=== PATIENT | male | born 1945 | race Hispanic/Latino ===

== ENCOUNTER → 2018-02-14 | Outpatient (CLI) | payer OTHER ==
[~2018-02-14] MED LIST: IOPAMIDOL 370 MG/ML 200 ML INFUS..BTL INJ ONE; SODIUM CHLORIDE 0.9% 50ML 50 ML ONE
[2018-02-14 10:29] LABS: BLOOD UREA NITROGEN 14 mg/dL (7-26); BUN/CREATININE RATIO 16 (6-25); CREATININE, SERUM 0.85 mg/dL (0.72-1.25); EST GLOMERULAR FILTRATION RATE > 60 ML/MIN (60-)
--- NOTE | 2018-02-14 11:28 | Diagnostic Imaging Report ---
PROCEDURE: CT ABDOMEN \T\ PELVIS W/WO CONTRAST TECHNIQUE: The abdomen and pelvis were scanned utilizing a multidetector helical scanner from the diaphragm to the lesser trochanter before and after the IV administration of 100 cc of Isovue 370 and the oral administration of water. Renal mass protocol was performed. Coronal and sagittal multiplanar reformations were obtained. COMPARISON: None. INDICATIONS: NEOPLASM OF KIDNEY FINDINGS: LOWER THORAX: Normal. HEPATOBILIARY: No focal hepatic lesions. No biliary ductal dilatation. The gallbladder has been removed. SPLEEN: No splenomegaly. PANCREAS: No focal masses or ductal dilatation. ADRENALS: No adrenal nodules. KIDNEYS/URETERS: Left kidney: 4.4 cm exophytic low attenuation lesion projecting from the upper pole with attenuation characteristics as follows: Precontrast: one Hounsfield unit Arterial phase: 5 Hounsfield units Venous phase: 6 Hounsfield units Delayed phase: 3 Hounsfield units 2.1 cm partially exophytic lesion in the interpolar region with attenuation characteristics as follows: Pre-contrast: Zero Hounsfield units Arterial phase: 7 Hounsfield units Venous phase: 13 Hounsfield units Delayed phase: 10 Hounsfield units 2.7 cm partially exophytic lesion projecting medially from the lower pole with attenuation characteristics as follows: Pre-contrast: Zero Hounsfield units Arterial phase: 6 Hounsfield units Venous phase: Zero Hounsfield units Delayed phase: 4 Hounsfield units. No calculi or hydronephrosis. Delayed phase images show no filling defects within the upper colon and system or ureter. There is soft tissue fullness at the left ureterovesical junction measuring 1.3 cm (series 7 image 154). Right kidney: No solid or cystic mass lesion. No calculi or hydronephrosis. Delayed-excretory phase images show no filling defects within the upper collecting systems or ureter. PELVIC ORGANS/BLADDER: The prostate is enlarged with mass effect upon the bladder base. Soft tissue fullness at the left ureterovesical junction as above. Bladder is otherwise unremarkable.. PERITONEUM / RETROPERITONEUM: No ascites or pneumoperitoneum. LYMPH NODES: No pelvic sidewall, retroperitoneal, or mesenteric lymphadenopathy. VESSELS: The atherosclerotic calcification of the abdominal aorta and major branch vessels with moderate proximal SMA stenosis. Celiac axis and SHERINE origins are widely patent. Single bilateral renal arteries with widely patent ostia. Right common iliac arterial stent and a partially visualized right superficial femoral arterial stent. Portal vein, splenic vein, and central superior mesenteric vein are patent. GI TRACT: The large bowel shows no evidence of distention or wall thickening. Scattered diverticula along the descending and sigmoid colon without inflammatory changes. Normal appendix. No small bowel dilatation to suggest obstruction. BONES AND SOFT TISSUES: Posttraumatic changes of the left hip with associated surgical hardware in the acetabular roof and heterotopic ossification about the proximal femur. Multilevel degenerative disc changes and degenerative facet arthropathy of the lumbar spine. Mild diffuse osteopenia. IMPRESSION: 3 low density left renal lesions as described above with attenuation and enhancement characteristics compatible with benign simple cysts. No additional renal mass lesions. Soft tissue fullness at the left ureterovesical junction may relate to ureteral and/or bladder smooth muscle contraction. However, direct visualization with cystoscopy should be considered, particularly if there is a history of hematuria. Atherosclerotic vascular disease. Large bowel diverticulosis without findings of diverticulitis. Dictated by: Adryan Riddle M.D. on 02/14/2018 at 11:32 Electronically approved by: Adryan Riddle M.D. on 02/14/2018 at 11:32
== END ==
LOC: CT 09:07
PROVIDERS: ATTEND Urology
DX: D41.00 Neoplasm of uncertain behavior of unspecified kidney (principal)
CPT/HCPCS: 36415; 74178; 82565; 84520; Q9967